=== PATIENT | male | born 1970 | race Caucasian/White ===

== ENCOUNTER 2022-02-12 15:29 | Emergency (ER) | payer OTHER ==
[~2022-02-12] VITALS: Ht 177.8 cm; Wt 106.1 kg
[~2022-02-12 15:29] MED LIST: HUMSLIDE; HYDR-5191 PO; INSU100S22 SC; METF-346 PO; METO-575 PO
[2022-02-12 16:02] VITALS: BP 114/67
--- NOTE | 2022-02-12 16:06 | NUR ---
PT TO WAIT IN LOBBY.
[2022-02-12] MEDS ORDERED: LID5T TP (17:13)
[2022-02-12] MEDS ORDERED: IBUP-2213 PO (17:14)
--- NOTE | 2022-02-12 17:36 | NUR ---
51 Y/O MALE C/O RIGHT KNEE PAIN S/P FALL YESTERDAY. DENIES HITTING HEAD. PT FELL ON R KNEE AND R ELBOW. +SWELLING NOTED. PT REPORTS TAKING GABAPENTIN AND NORCO PRIOR TO ARRIVAL. PT AMBULATES BUT PAIN INCREASES WITH MOVEMENT. PT RATES PAIN 8/10 THAT HE DESCRIBES SHARP AND NONRADIATING. DENIES NUMBNESSS/TINGLING. PT A/O X4 WITH EVEN AND UNLABORED RESPIRATIONS PMH: DM, HTN, HLD NKA
[2022-02-12] MEDS: KETOROLAC 30 MG/ML VIAL IM ONE (17:50)
--- NOTE | 2022-02-12 18:05 | NUR ---
Patient discharged with v/s stable. Written and verbal after care instructions ABOUT LUMBAR SPRAIN, SPONDYLOSIS, AND KNEE SPRAIN given and explained. Patient alert, oriented and verbalized understanding of instructions. Ambulatory with steady gait WITH CRUCTHES. All questions addressed prior to discharge. ID band removed. Patient advised to follow up with PMD. Rx of IBUPROFEN given. Patient educated on indication of medication including possible reaction and side effects. Opportunity to ask questions provided and answered.
== END 2022-02-12 18:05 | disposition home or self-care (01) ==
LOC: MED 15:29
DX: S83.91XA Sprain of unspecified site of right knee, initial encounter (principal); S39.012A Strain of muscle, fascia and tendon of lower back, initial encounter; I10 Essential (primary) hypertension; E11.9 Type 2 diabetes mellitus without complications; Z79.4 Long term (current) use of insulin; Z79.899 Other long term (current) drug therapy; W18.30XA Fall on same level, unspecified, initial encounter; Y93.89 Activity, other specified; Y92.89 Other specified places as the place of occurrence of the external cause; Y99.8 Other external cause status
CPT/HCPCS: 29505; 72100; 73562; 96372; 99284; J1885

== ENCOUNTER 2022-12-08 13:25 | Emergency (ER) | payer OTHER ==
[~2022-12-08] VITALS: Ht 172.7 cm; Wt 107.5 kg
[~2022-12-08 13:25] MED LIST changes: +IBUP-2213 PO; +LID5T TP
[2022-12-08 13:48] VITALS: BP 112/66
--- NOTE | 2022-12-08 13:58 | NUR ---
MD GIL AT BEDSIDE FOR EVALUATION
--- NOTE | 2022-12-08 14:08 | NUR ---
xray at bedside
--- NOTE | 2022-12-08 14:10 | NUR ---
52YO MALE PT C/O BURNING R FOOT PAIN XYESTERDAY. PAIN AT MOST ON BEARING WEIGHT. REPORTS ONSET AFTER STEPPING ON MARLEN NAIL. PRESENTS W/ PUNCTURE- PLANTER R FOOT. STATES CLEANING SITE W/ SOAP AND WATER. DENIES N/V/D, FEVER,CHILLS, NUMBING OR LOSS OF SENSATION. PT AAOX4, NO VISIBLE DISTRESS HX: DIABETES, HTN, NEUROPATHY NKA
--- NOTE | 2022-12-08 14:20 | NUR ---
The patient's care was reviewed and supervised by CATHI ELLIS RN.
--- NOTE | 2022-12-08 14:24 | NUR ---
52 YO MALE PRESENTS TO THE ED PATIENT STATED YESTERDAY HE WAS WALKING AT A [employer] AREA WHEN HE STEPPED ON A RUSTED NAIL WITH RIGHT FOOT, PATIENT REMOVED NAIL AND CLEANSED WITH ALCOHOL.
[2022-12-08] MEDS ORDERED: CIPR500T4 PO (14:40)
[2022-12-08] MEDS ORDERED: CEPH-588 PO (14:40)
[2022-12-08] MEDS ORDERED: BACITRACIN OINT 500 UNITS/GM PKT TP ONE ×2 (14:43→14:45)
--- NOTE | 2022-12-08 15:05 | NUR ---
Patient discharged with v/s stable. Written and verbal after care instructions FOR PUNCTURE WOUND given and explained. Patient alert, oriented and verbalized understanding of instructions. Ambulatory with steady gait. All questions addressed prior to discharge. ID band removed. Patient advised to follow up with PMD. Rx of KELFEX AND CIPRO given. Opportunity to ask questions provided and answered.
== END 2022-12-08 15:05 | disposition home or self-care (01) ==
LOC: MED 13:25
DX: S91.331A Puncture wound without foreign body, right foot, initial encounter (principal); I10 Essential (primary) hypertension; E11.9 Type 2 diabetes mellitus without complications; E78.5 Hyperlipidemia, unspecified; Z79.4 Long term (current) use of insulin; Z79.899 Other long term (current) drug therapy; X58.XXXA Exposure to other specified factors, initial encounter; Y93.89 Activity, other specified; Y92.89 Other specified places as the place of occurrence of the external cause; Y99.8 Other external cause status
CPT/HCPCS: 73630; 90471; 90715; 99284; Q0092

== ENCOUNTER 2023-07-13 11:55 | Emergency (ER) | payer OTHER ==
[~2023-07-13] VITALS: Ht 172.7 cm; Wt 97.5 kg
[~2023-07-13 11:55] MED LIST changes: +CEPH-588 PO; +CIPR500T4 PO
[2023-07-13 12:34] VITALS: BP 127/81; PULSE 78; RESP 18; TEMP 98; O2SAT 98
[2023-07-13 15:33] VITALS: BP 120/78; PULSE 78; RESP 18; TEMP 98; O2SAT 99
== END 2023-07-13 15:33 | disposition home or self-care (01) ==
LOC: MED 11:55
DX: M54.42 Lumbago with sciatica, left side (principal); R60.0 Localized edema; Z96.698 Presence of other orthopedic joint implants; E11.9 Type 2 diabetes mellitus without complications; I10 Essential (primary) hypertension; Z79.899 Other long term (current) drug therapy; Z79.2 Long term (current) use of antibiotics; Z79.1 Long term (current) use of non-steroidal anti-inflammatories (NSAID); Z79.4 Long term (current) use of insulin
CPT/HCPCS: 93971; 99284; Q0092